=== PATIENT | female | born 2000 | race Caucasian/White ===

== ENCOUNTER 2022-08-03 08:40 | Emergency (ER) | payer SELFPAY ==
[~2022-08-03] VITALS: Ht 160 cm; Wt 61.4 kg
[2022-08-03 08:52] VITALS: BP 129/72; TEMP 98.3
[2022-08-03] MEDS ORDERED: ZOFRAN ODT4 MG PO (09:42)
[2022-08-03 09:49] VITALS: PULSE 78
== END 2022-08-03 09:54 | disposition home or self-care (01) ==
LOC: COL.ER 08:40
DX: S06.0X0A Concussion without loss of consciousness, initial encounter (principal); S01.01XA Laceration without foreign body of scalp, initial encounter; Z28.310 Unvaccinated for COVID-19; W22.8XXA Striking against or struck by other objects, initial encounter; Y93.72 Activity, wrestling